=== PATIENT | female | born 1955 | race Caucasian/White ===

== ENCOUNTER 2019-02-28 10:14 | Outpatient (CLI) | payer MEDICARE ==
--- NOTE | 2019-02-28 10:41 | RAD ---
CHEST 2 VIEWS: HISTORY: Bronchitis. COMPARISON: None. FINDINGS: Normal cardiac silhouette. The lungs and pleural spaces are clear. No pneumothorax or osseous abnor malities. IMPRESSION: No acute cardiopulmonary process. POS: [facility]
== END 2019-02-28 10:15 | disposition home or self-care (01) ==
LOC: NAV RAD 10:14
PROVIDERS: ATTEND Family Medicine
DX: J20.9 Acute bronchitis, unspecified (principal)
CPT/HCPCS: 71046

== ENCOUNTER 2020-03-25 11:21 | Outpatient (CLI) | payer MEDICARE ==
--- NOTE | 2020-03-25 11:45 | RAD ---
RIGHT KNEE 4 VIEWS: Date: 03/25/2020 HISTORY: Knee pain. FINDINGS: Moderate degenerative changes. The medial and lateral joint spaces are preserved; however, there are moderate marginal osteophytes seen medially and laterally and there is spurring from the tibial spine s and patella with narrowing of the patellofemoral joint. No fracture or acute abnormality. No eviden ce of joint effusion. IMPRESSION: Moderate degenerative changes of the right knee. POS: [facility]
== END 2020-03-25 11:22 | disposition home or self-care (01) ==
LOC: NAV RAD 11:21
PROVIDERS: ATTEND Family Medicine
DX: M25.561 Pain in right knee (principal); M17.11 Unilateral primary osteoarthritis, right knee

== ENCOUNTER 2020-09-17 09:30 | Outpatient (CLI) | payer MEDICARE ==
--- NOTE | 2020-09-17 10:21 | RAD ---
LUMBAR SPINE SERIES 3 VIEWS: Date: 09/17/2020 HISTORY: Low back pain. FINDINGS: Vertebral bodies are normal in height. Severe disc narrowing at L5-S1. Some mild disc narrowing at L4 -5. Pedicles are intact. No spondylolisthesis. IMPRESSION: 1. Moderate arthritic change of the spine. 2. Incidental note is made of what appears to be a calcified fibroid. POS: [facility]
== END 2020-09-17 09:31 | disposition home or self-care (01) ==
LOC: NAV RAD 09:30
PROVIDERS: ATTEND Family Medicine
DX: M54.5 Low back pain (principal); M47.816 Spondylosis without myelopathy or radiculopathy, lumbar region
CPT/HCPCS: 72100

== ENCOUNTER 2023-02-22 17:02 | Emergency (ER) | payer MEDICARE ==
[2023-02-22] MEDS ORDERED: Aspirin Chewable 81 MG TAB ONE (17:41)
[2023-02-22 17:44] LABS: #Basophils 0.1 thou/uL (0.0-0.2); #Eosinphils 0.2 thou/uL (0.0-0.7); #Monocytes 0.6 thou/uL (0.11-0.59); #Neutrophils 3.7 thou/uL (1.40-6.50); %Basophils 1.1 % (0.0-1.0); %Eosinophils 2.4 % (0.0-10.0); %Lymphocytes 39.9 % (21.0-51.0); %Monocytes 8.4 % (0.0-10.0); %Neutrophils 48.3 % (42.0-75.0); Hemoglobin 13.2 g/dL (12.0-16.0); Mean Corpuscular HGB CONC 32.5 g/dL (32.0-36.0); Mean Corpuscular Hemoglobin 31.1 pg (27.0-31.0); Mean Corpuscular Volume 95.8 fl (78.0-98.0); Mean Platelet Volume 8.1 fL (7.4-10.4); Platelet Count 230 10x3/uL (130-400); RBC Distribution Width 12.3 % (11.5-14.5); Red Blood Cell (RBC) Count 4.24 mill/uL (4.20-5.40); White Blood Cell (WBC) Count 7.6 10x3/uL (4.8-10.8)
[2023-02-22] MEDS ORDERED: Ondansetron ODT 4 MG TAB ONE (17:52)
[2023-02-22 18:02] LABS: ALT (SGPT) 47 U/L (8-55); AST (SGOT) 35 U/L (5-34); Alkaline Phosphatase 64 U/L (40-110); Anion Gap 15 mmol/L (10-20); BUN (Urea Nitrogen) 13 mg/dL (9.8-20.1); Bilirubin, Total 0.4 mg/dL (0.2-1.2); Calc. Creatinine Clearance 0 mL/min (70-130); Calcium 9.4 mg/dL (7.8-10.44); Carbon Dioxide 17 mmol/L (23-31); Chloride 107 mmol/L (98-107); Estimated GFR 77; Globulin 2.8 g/dL (2.4-3.5); Glucose 126 mg/dL (80-115); Potassium 3.6 mmol/L (3.5-5.1); Protein, Total 6.8 g/dL (5.8-8.1); Sodium 135 mmol/L (136-145)
[2023-02-22 18:31] LABS: Bilirubin Negative (Negative); Blood, Urine Negative (Negative); Clarity Clear (Clear); Glucose, Urine (Dipstick) Negative (Negative); Ketone, Urine Negative (Negative); Leukocyte Small (Negative); Nitrite Negative (Negative); Protein, Urine (Dipstick) Negative (Neg-Trace); Specific Gravity, Urine 1.025 (1.005-1.030); Urobilinogen 0.2 mg/dL (Less than 2); pH, Urine 5.5 (5.0-9.0)
[2023-02-22 18:41] LABS: RBC/HPF 0-3 HPF (0-3); Renal Epithelial 0-3 HPF (None Seen); Squamous Epithelial 0-3 HPF (0-3); Urine Culture Reflex No No
== END 2023-02-22 21:18 | disposition short-term general hospital (02) ==
LOC: NAV ERS 17:02
DX: R27.0 Ataxia, unspecified (principal); I10 Essential (primary) hypertension
CPT/HCPCS: 70450; 80053; 81001; 84443; 84484; 85025; 93005; Q0162